=== PATIENT | female | born 1960 | race Hispanic/Latino ===

== ENCOUNTER 2016-11-17 18:09 | Emergency (ER) | payer OTHER ==
[2016-11-17 18:58] LABS: Bilirubin,Urine NEG (Negative); Blood,Urine LG (Negative); Ketones,Urine NEG (Negative); Leukocyte Esterase,Urine NEG (Negative); Nitrite,Urine NEG (Negative); Urobilinogen,Urine < 2.0 mg/dL (<2.0)
[2016-11-17 19:00] LABS: RBC,Urine > 182.0 /HPF (0.0-6.0)
[2016-11-17] MEDS ORDERED: BACTRIM DS PO ONE (21:15)
--- NOTE | 2016-11-17 21:20 | Emergency Department Report ---
ED Female HPI - General Chief complaint: Urogenital-Female Stated complaint: BLADDER INFECTION Time Seen by Provider: 11/17/16 21:15 Source: patient Mode of arrival: Ambulatory Limitations: No Limitations - History of Present Illness Initial comments: Patient is a 56-year-old female with no significant past medical history who presents with dysuria that has been going on for the last 8 hours. Patient states that urinating makes the pain worse and nothing makes the pain better. Pain is burning and sharp it is a 7 out of 10 the pain doesn't radiate she also notice notices that symptoms are associated with urinary frequency. And she is been having some spots of blood in her urine. She has not had any vaginal discharge. She denies having any nausea, vomiting or abdominal pain. - Related Data Home Medications Medication Instructions Recorded Confirmed Last Taken Cetirizine HCl [ZyrTEC] 10 mg PO PRN PRN 11/17/16 11/17/16 11/10/16 09:00 Telmisartan/Hctz (Nf) [Micardis 1 each PO DAILY 11/17/16 11/17/16 11/17/16 08:00 Hct (Nf) 80-12.5 mg] Zaleplon [Sonata] 5 mg PO QHS 11/17/16 11/17/16 11/14/16 21:00 Previous Rx's Medication Instructions Recorded Last Taken Type Sulfamethoxazole/Trimethoprim 1 each PO QDAY #7 tablet 11/17/16 Unknown Rx [Bactrim 400-80 mg] Allergies Allergy/AdvReac Type Severity Reaction Status Date / Time codeine Allergy NAUSEA / Verified 11/17/16 19:58 ITCHING ED Review of Systems ROS: Stated complaint: BLADDER INFECTION Other details as noted in HPI Constitutional: denies: chills, fever Eyes: denies: eye pain, eye discharge, vision change ENT: denies: ear pain, throat pain Respiratory: denies: cough, shortness of breath, wheezing Cardiovascular: denies: chest pain, palpitations Endocrine: no symptoms reported Gastrointestinal: as per HPI Genitourinary: urgency, dysuria, frequency, hematuria Musculoskeletal: denies: back pain, joint swelling, arthralgia Skin: denies: rash, lesions Neurological: denies: headache, weakness, paresthesias Psychiatric: denies: anxiety, depression Hematological/Lymphatic: denies: easy bleeding, easy bruising ED Past Medical Hx - Past Medical History Hx Hypertension: Yes Additional medical history: HEART MURMUR - Surgical History Additional Surgical History: X 2. TUMMY TUCK. STAPENDECTOMY. HYSTERECTOMY - Social History Smoking Status: Former Smoker Substance Use Type: Alcohol - Medications Home Medications: Home Medications Medication Instructions Recorded Confirmed Last Taken Type Cetirizine HCl [ZyrTEC] 10 mg PO PRN PRN 11/17/16 11/17/16 11/10/16 09:00 History Sulfamethoxazole/Trimethoprim 1 each PO QDAY #7 tablet 11/17/16 Unknown Rx [Bactrim 400-80 mg] Telmisartan/Hctz (Nf) [Micardis 1 each PO DAILY 11/17/16 11/17/16 11/17/16 08: 00 History Hct (Nf) 80-12.5 mg] Zaleplon [Sonata] 5 mg PO QHS 11/17/16 11/17/16 11/14/16 21:00 History ED Physical Exam - General Limitations: No Limitations General appearance: alert, in no apparent distress - Head Head exam: Present: atraumatic, normocephalic - Eye Eye exam: Present: normal appearance - ENT ENT exam: Present: mucous membranes moist - Neck Neck exam: Present: normal inspection - Respiratory Respiratory exam: Present: normal lung sounds bilaterally. Absent: respiratory distress - Cardiovascular Cardiovascular Exam: Present: regular rate, normal rhythm. Absent: systolic murmur, diastolic murmur, rubs, gallop - GI/Abdominal GI/Abdominal exam: Present: soft, normal bowel sounds - Extremities Exam Extremities exam: Present: normal inspection - Back Exam Back exam: Present: normal inspection. Absent: CVA tenderness (R), CVA tenderness (L) - Neurological Exam Neurological exam: Present: alert, oriented X3 - Psychiatric Psychiatric exam: Present: normal affect, normal mood ED Course Vital Signs 11/17/16 11/17/16 11/17/16 18:24 19:55 22:09 Temperature 98.2 F Pulse Rate 63 65 72 Respiratory 17 20 18 Rate Blood Pressure 154/82 Blood Pressure 184/90 172/88 [Left] O2 Sat by Pulse 97 100 99 Oximetry - Reevaluation(s) Reevaluation #1: 11/17/16 21:20 She received oral Bactrim and will receive a prescription for outpatient Bactrim. ED Medical Decision Making - Lab Data Laboratory Results - last 24 hr 11/17/16 18:43 Urine Color Yellow Urine Turbidity Clear Urine pH 5.0 Ur Specific [place] 1.023 Urine Protein 30 mg/dl Urine Glucose (UA) Neg Urine Ketones Neg Urine Blood Lg Urine Nitrite Neg Urine Bilirubin Neg Urine Urobilinogen < 2.0 Ur Leukocyte Esterase Neg Urine WBC (Auto) 8.0 H Urine RBC (Auto) > 182.0 U Epithel Cells (Auto) 3.0 - Medical Decision Making Chief medical diagnosis: Urinary tract infection Differential medical diagnosis: Cystitis, pyelonephritis. Will get urinalysis Due to patient having no CVA tenderness, no fever in the acuity of symptoms unlikely patient has pyelonephritis will treat patient as a simple urinary tract infection and will discharge patient with oral Bactrim. Additional verbal discharge instructions were given Critical care attestation.: If time is entered above; I have spent that time in minutes in the direct care of this critically ill patient, excluding procedure time. ED Disposition Clinical Impression: Urinary tract infection, acute Disposition: DC-01 TO HOME OR SELFCARE Is pt being admited?: No Does the pt Need Aspirin: No Condition: Stable Instructions: Urinary Tract Infection in Women (ED) Prescriptions: Sulfamethoxazole/Trimethoprim [Bactrim 400-80 mg] 1 each PO QDAY #7 tablet Referrals: PRIMARY CARE, [Primary Care Provider] - 3-5 Days Forms: Work/School Release Form(ED) Time of Disposition: 21:18
[2016-11-17 22:11] VITALS: BP 172/88
== END 2016-11-17 22:08 | disposition home or self-care (01) ==
LOC: ED 18:09
DX: N39.0 Urinary tract infection, site not specified (principal); I10 Essential (primary) hypertension; Z88.6 Allergy status to analgesic agent; Z87.891 Personal history of nicotine dependence
CPT/HCPCS: 81001; 99283